=== PATIENT | male | born 1935 | race Hispanic/Latino ===

== ENCOUNTER 2018-11-07 10:05 | Day surgery (SDC) | payer MEDICARE ==
[~2018-11-07 10:05] MED LIST: NACL 0.9% 1000 ML 1,000 ML IV SCH
[2018-11-07] MEDS ORDERED: XYLOCAINE MPF 2% ONE (11:00)
[2018-11-07] MEDS ORDERED: DIPRIVAN 10 MG/ML IV ONE ×2 (11:35)
[2018-11-07] MEDS ORDERED: XYLOCAINE 2% UROJET ONE (11:55)
[2018-11-07] MEDS ORDERED: WATER FOR IRRIG STERILE IR ONE (11:55)
[2018-11-07] MEDS ORDERED: WATER FOR IRRIG STERILE ONE (11:55)
--- NOTE | 2018-11-07 12:13 | Procedure Note ---
Date of procedure: 11/07/18 Pre-op diagnosis: Colon Polyp Screening/ hematochezia Post-op diagnosis: other (Two, Small Descending colon Poyps/ H/O Partial Colon Resection (h/o Appendiceal Cancer)/ Extensive,Diverticular Disease/ Moderate Internal Hemorrhoid (s/p Banding x 3)/Minor,External Hemorrhoid) Procedure: Colonoscopy with Biosy and Flex Sig with Banding x 3 Anesthesia: MAC Surgeon: MAEGAN SCHUSTER Estimated blood loss: minimal Pathology: list Specimen disposition: to lab Condition: stable Disposition: same day (Avoid aspirin and NSAID and anticoagulants for 3 days. Encourage fiber intake. Use Sitz Bath and follow up in 1 to 2 weeks ([phone]).)
[2018-11-07 13:12] VITALS: BP 124/62
--- NOTE | 2018-11-07 14:41 | Anesthesia Day of Surgery ---
Anesthesia Day of Surgery - Day of Surgery Patient Examined: Yes Patient H&P Reviewed: Yes Patient is NPO: Yes
--- NOTE | 2018-11-07 14:43 | Anesthesia Consultation ---
Anesthesia Consult and Med Hx Date of service: 11/07/18 - Airway Anesthetic Teeth Evaluation: Poor ROM Head & Neck: Adequate Mental/Hyoid Distance: Adequate Mallampati Class: Class II Intubation Access Assessment: Probably Good - Pre-Operative Health Status ASA Pre-Surgery Classification: ASA3 Proposed Anesthetic Plan: MAC - Pulmonary Hx Sleep Apnea: Yes (CPAP) - Cardiovascular System Hx Hypertension: Yes (High cholesterol) Hx Cardia Arrhythmia: Yes (AFIB) - Other Systems Hx Cancer: Yes (APPENICEAL CARICINOMA)
--- NOTE | 2018-11-07 16:42 | Operative Report ---
PROCEDURE: Colonoscopy with biopsy. INDICATIONS: This is an 83-year-old white male who has a prior history of appendiceal cancer, for which he has had partial colon resection done. Colonoscopy was done as part of colon polyp screening to make sure there has not been any recurrence of any polyps. DESCRIPTION OF PROCEDURE: Procedure was done after getting informed consent with MAC anesthesia. Initial rectal exam was unremarkable. Instrument was passed through the rectum to the right colon, where the surgical signs were noted. There were extensive diverticula noted throughout the colon. The anastomotic site appeared normal. There was diverticular disease involving the transverse as well as the left colon. In the descending colon, there were two small polyps about 7-8 mm in diameter that were removed by cold biopsy. There was minimal bleeding from the biopsy sites and the rectum showed moderate internal hemorrhoid, from which he has hematochezia. PLAN: Plan is to do banding. ASSESSMENT: Colon polyp screening, partial colon resection secondary to history of appendiceal cancer. Two small descending colon polyps removed by cold biopsy. Moderately severe diverticular disease throughout the colon. The patient will be encouraged to take fiber supplements. Moderate internal hemorrhoid and minor internal hemorrhoid. The patient will be encouraged to take fiber supplements, avoid aspirin and aspirin-related products and anticoagulants for another couple of days and to do a flex sig with banding to help with his moderate internal hemorrhoid. Procedure was done with assistance of anesthesia and with the help and presence of RN, Elo Benson and Indy hahn. The patient will also be asked to follow up in the office in 1-2 weeks' time. JOB# [id number] CHARY/CAREY
--- NOTE | 2018-11-07 16:44 | Operative Report ---
PROCEDURE: Flexible sigmoidoscopy with banding x 3. INDICATIONS: This is an 83-year-old white male who has a prior history of appendiceal cancer and history of colon cancer. He is on anticoagulants secondary to his coronary artery disease and on occasion bleeds from his hemorrhoids and has required banding from time to time. Colonoscopy again showed presence of moderate internal hemorrhoid and minor external hemorrhoids as well as some colon polyps that were removed. He also had extensive diverticular disease and will be advised to take fiber supplements for that. DESCRIPTION OF PROCEDURE: The EGD scope with the banding apparatus was introduced and retroflexed. Three of the largest hemorrhoids were then suctioned into the suction channel and 3 bands were applied for each of the 3 hemorrhoids. Lidocaine gel was then injected into the rectal vault. ASSESSMENT: Hematochezia secondary to moderate internal hemorrhoids, status post banding x 3. PLAN: I have advised the patient to take Sitz bath, avoid aspirin and aspirin-related products and anticoagulants for the next 3 days. Analgesic to be used as needed and follow up in the office in 1-2 weeks' time. The patient's procedure was done in the GI lab with assistance of anesthesia and assistance and presence of RNElo and Indy hahn. JOB# [id number] CHARY/CAREY
== END 2018-11-07 10:06 | disposition home or self-care (01) ==
LOC: GIO 10:05
DX: K63.5 Polyp of colon (principal); K64.8 Other hemorrhoids; K57.30 Diverticulosis of large intestine without perforation or abscess without bleeding; E78.00 Pure hypercholesterolemia, unspecified; I48.91 Unspecified atrial fibrillation; I10 Essential (primary) hypertension; G47.30 Sleep apnea, unspecified; Z79.899 Other long term (current) drug therapy; Z98.890 Other specified postprocedural states; Z85.038 Personal history of other malignant neoplasm of large intestine
CPT/HCPCS: 45380; 46221; 88305; J2704; J7030

== ENCOUNTER 2020-11-13 06:57 | Day surgery (SDC) | payer MEDICARE ==
[2020-11-13] MEDS ORDERED: SODIUM CHLORIDE 0.9% 1000 ML 1,000 ML IV SCH (07:00)
[2020-11-13] MEDS ORDERED: WATER FOR IRRIG STERILE 250 ML BOTTLE IR ONE (07:18)
[2020-11-13] MEDS ORDERED: WATER FOR IRRIG STERILE 1,000 ML BOTTLE ONE (07:19)
--- NOTE | 2020-11-13 07:57 | Anesthesia Consultation ---
Anesthesia Consult and Med Hx Date of service: 11/13/20 - Airway Anesthetic Teeth Evaluation: Good ROM Head & Neck: Adequate Mental/Hyoid Distance: Adequate Mallampati Class: Class II Intubation Access Assessment: Probably Good - Pulmonary Exam CTA: Yes - Pre-Operative Health Status ASA Pre-Surgery Classification: ASA3 Proposed Anesthetic Plan: MAC - Pulmonary Hx Smoking: No Hx Respiratory Symptoms: No Hx Sleep Apnea: Yes (Regular use of CPAP machine) - Cardiovascular System Hx Hypertension: Yes Hx Coronary Artery Disease: Yes (EF 55%) Hx Heart Attack/AMI: No Hx Percutaneous Transluminal Coronary Angioplasty (PTCA): No Hx Cardia Arrhythmia: Yes (a-fib; last dose eliquis 11/11/19) Hx Pacemaker: No Hx Internal Defibrillator: No - Central Nervous System CVA: No Hx Psychiatric Problems: No - Gastrointestinal Hx Gastroesophageal Reflux Disease: No - Endocrine Hx Renal Disease: No Hx Liver Disease: No Hx Insulin Dependent Diabetes: No Hx Non-Insulin Dependent Diabetes: No Hx Thyroid Disease: No - Other Systems Hx Alcohol Use: No Hx Substance Use: No Hx Cancer: Yes (APPENDICEAL) Hx Obesity: Yes (BMI 41) - Additional Comments Anesthesia Medical History Comments: Patient denies previous anesthesia complications.
--- NOTE | 2020-11-13 08:09 | Anesthesia Day of Surgery ---
Anesthesia Day of Surgery - Day of Surgery Patient Examined: Yes Patient H&P Reviewed: Yes Patient is NPO: Yes Beta Blockers: No Cardiac Clearance: No Pulmonary Clearance: No Leonard's Test: N/A
[2020-11-13] MEDS ORDERED: LIDOCAINE MPF (2%) 20 MG/1 ML VIAL 5 ML ONE (08:47)
[2020-11-13] MEDS ORDERED: propofoL 200 MG/20 ML VIAL IV ONE ×2 (08:48→09:03)
--- NOTE | 2020-11-13 09:19 | Procedure Note ---
Date of procedure: 11/13/20 Pre-op diagnosis: H/O Colon Polyp/ H/O Appendiceal Cancer Post-op diagnosis: other (No Colon Polyps now/Extensive, Deep Diverticular Disease/ Mild to Moderate, Internal and External Hemorrhoids/ H/O Partial Colon Resection) Procedure: Colonoscopy Anesthesia: MAC Surgeon: MAEGAN SCHUSTER Estimated blood loss: none Pathology: none Condition: stable Disposition: same day (Encourage fiber intake; resume home medication and use OTC Hemorrhoidal Medication and Follow up in 1 to 2 weeks ([phone]).)
[2020-11-13 09:52] VITALS: BP 150/74
--- NOTE | 2020-11-13 09:52 | Operative Report ---
DATE OF SURGERY: 11/13/2020 PROCEDURE: Colonoscopy. INDICATIONS: This is an 85-year-old white male who has a prior history of an appendiceal cancer for which he had partial colon resection done. He also has a history of colon polyp and has had hemorrhoidal banding done in the past because of hematochezia. Colonoscopy was done to assess for recurrence of any polyps. DESCRIPTION OF PROCEDURE: Procedure was done after getting informed consent with MAC anesthesia. Initial rectal examination was unremarkable except for the presence of [id number] external hemorrhoid. The instrument was passed through the rectum onto the proximal colon. Surgical changes were noted in the proximal colon. The proximal colon was also viewed in the retroverted view. No additional pathology was noted. The right colon where there were surgical changes and transverse colon showed normal mucosa except for the presence of extensive and some deep diverticular disease that was noted throughout the entirety of the colon, more pronounced in the left colon, but was also noted in the transverse and also in the proximal colon. The left colon, which was the descending colon and the sigmoid only showed diverticular disease, some being quite deep and the rectum showed vmvq-[id number] internal hemorrhoid , but not significant enough for banding. ASSESSMENT: History of appendiceal cancer. No colon polyps noted. Partial colon resection. In the proximal colon, extensive diverticular disease and scattered throughout the colon, [id number] internal hemorrhoid and jvyq-uq-mphjmgor external hemorrhoid. PLAN: To have the patient resume home medication. Encouraged the patient to take fiber supplements and also take phab-kxc-lytyzry hemorrhoidal medication and follow up in the office in 1-2 weeks' time. Procedure was done in the GI lab with assistance of the GI lab team, which included the GI nurse, the biotech production specialist and with the assistance of anesthesia. TID: [id number] RECEIPT: [id number] KJ/CRISTINO
--- NOTE | 2020-11-13 11:29 | Post Anesthesia Evaluation ---
- Post Anesthesia Evaluation Patient Participated: Yes Airway Patent: Yes Stable Respiratory Function: Yes Nausea/Vomiting: No Temp > 96.8F: Yes Pain Manageable: Yes Adequeate Hydration: Yes Anesthesia Complications: No
== END 2020-11-13 10:05 | disposition home or self-care (01) ==
LOC: GIO 06:57
DX: Z12.11 Encounter for screening for malignant neoplasm of colon (principal); K57.30 Diverticulosis of large intestine without perforation or abscess without bleeding; K64.8 Other hemorrhoids; I42.9 Cardiomyopathy, unspecified; I25.10 Atherosclerotic heart disease of native coronary artery without angina pectoris; E78.00 Pure hypercholesterolemia, unspecified; I48.91 Unspecified atrial fibrillation; I10 Essential (primary) hypertension; G47.30 Sleep apnea, unspecified; E66.9 Obesity, unspecified; Z90.49 Acquired absence of other specified parts of digestive tract; Z79.899 Other long term (current) drug therapy; Z98.890 Other specified postprocedural states; Z68.25 Body mass index [BMI] 25.0-25.9, adult; Z86.010 Personal history of colon polyps; Z85.038 Personal history of other malignant neoplasm of large intestine
CPT/HCPCS: G0105; J2704; J7030

== ENCOUNTER 2021-11-12 07:10 | Day surgery (SDC) | payer MEDICARE ==
[~2021-11-12 07:10] MED LIST changes: -NACL 0.9% 1000 ML 1,000 ML IV SCH; +SODIUM CHLORIDE 0.9% 1000 ML 1,000 ML IV SCH
--- NOTE | 2021-11-12 08:04 | Anesthesia Day of Surgery ---
Anesthesia Day of Surgery - Day of Surgery Patient Examined: Yes
--- NOTE | 2021-11-12 08:04 | Anesthesia Consultation ---
Anesthesia Consult and Med Hx Date of service: 11/12/21 - Airway ROM Head & Neck: Adequate Mental/Hyoid Distance: Adequate Mallampati Class: Class II Intubation Access Assessment: Good - Pulmonary Exam CTA: Yes - Cardiac Exam Anesthetic Concerns: Irregular - Pre-Operative Health Status ASA Pre-Surgery Classification: ASA3 Proposed Anesthetic Plan: MAC - Pulmonary Hx Smoking: No Hx Respiratory Symptoms: No Hx Sleep Apnea: Yes (Regular use of CPAP machine) - Cardiovascular System Hx Hypertension: Yes Hx Coronary Artery Disease: Yes Hx Heart Attack/AMI: No Hx Percutaneous Transluminal Coronary Angioplasty (PTCA): No Hx Cardia Arrhythmia: Yes (a-fib; last dose eliquis 11/11/19) Hx Pacemaker: No Hx Internal Defibrillator: No Hx Heart Murmur: Yes Hx Peripheral Vascular Disease: Yes - Central Nervous System CVA: No Hx Psychiatric Problems: No - Gastrointestinal Hx Gastroesophageal Reflux Disease: No - Endocrine Hx Renal Disease: No Hx Liver Disease: No Hx Insulin Dependent Diabetes: No Hx Non-Insulin Dependent Diabetes: No Hx Thyroid Disease: No - Other Systems Hx Alcohol Use: No Hx Substance Use: No Hx Cancer: Yes (APPENDICEAL CANCER) Hx Obesity: Yes (BMI 41)
[2021-11-12] MEDS ORDERED: propofoL 200 MG/20 ML VIAL IV ONE (08:09)
[2021-11-12] MEDS ORDERED: WATER FOR IRRIG STERILE 250 ML BOTTLE IR ONE (08:12)
[2021-11-12] MEDS ORDERED: WATER FOR IRRIG STERILE 1,000 ML BOTTLE ONE (08:12)
[2021-11-12] MEDS ORDERED: LIDOCAINE 2% UROJECT 10 ML JELLY ONE (08:38)
--- NOTE | 2021-11-12 09:09 | Procedure Note ---
Date of procedure: 11/12/21 Pre-op diagnosis: H/O ColonPolyps/ H/O Appendiceal Cancer s/p Right Hemicolectomy and Hematoc Post-op diagnosis: other (No Colon Polyps now/ Extensive, Deep Diverticlar DS/P Right Hemicolectomy/Moderate,Internal Hemorrods (s/p Banding x 2)isease/) Procedure: Colonoscopy and Flexible Sigmoidoscopy with Banding x 2 Anesthesia: MAC Surgeon: MAEGAN SCHUSTER Estimated blood loss: minimal Pathology: list Specimen disposition: to lab Condition: stable Disposition: same day (Encourage fiber intake; treat with Tramadol, Lidocaine Gel. Avoid aspirin and NSAID for 5 days; F/U in 1 to 2 weeks ([phone]).)
--- NOTE | 2021-11-12 09:22 | Operative Report ---
DATE OF SURGERY: 11/12/2021 PROCEDURE: Flexible sigmoidoscopy with banding x2. INDICATIONS: This is an 86-year-old white male with a prior history of appendiceal cancer, status post right hemicolectomy, prior history of colon polyps; no colon polyps noted during this time. He is on anticoagulants because of his cardiac condition and has hemorrhoids, which possibly aggravated hematochezia. Colonoscopy showed moderate internal hemorrhoids. He underwent flexible sigmoidoscopy with banding x2. EGD scope with the banding apparatus was introduced and retroflexed. DESCRIPTION OF PROCEDURE: After getting informed consent, procedure was done with MAC anesthesia. Two of the largest hemorrhoids were then suctioned into the suction channel and band was applied. There were 2 bands applied to one of the hemorrhoids and one to the other. There was no bleeding or complications associated with it. ASSESSMENT AND PLAN: Hematochezia secondary to moderate internal hemorrhoids, status post banding x2. The patient will be given analgesics and also given lidocaine gel, asked to avoid aspirin and aspirin-related products for the next few days and follow up in the office in 1-2 weeks' time. The patient will also be asked to take fiber supplements because of the extensive diverticular disease that was present. TID: [id number] RECEIPT: [id number] CHARY/CYN
--- NOTE | 2021-11-12 09:27 | Operative Report ---
DATE OF SURGERY: 11/12/2021 INDICATIONS: This is an 86-year-old white male with a prior history of appendiceal cancer, status post right hemicolectomy, prior history of colon polyps, recent history of hematochezia. The patient is on anticoagulants because of his heart condition, which possibly aggravated his hematochezia. Colonoscopy was done to make sure there was not any recurrence of colon polyps and no significant pathology accounting for his hematochezia besides his hemorrhoids. DESCRIPTION OF PROCEDURE: Procedure was done after getting informed consent with MAC anesthesia. Initial rectal examination was unremarkable. Instrument was passed through the rectum onto the anastomotic site at the site of right hemicolectomy. The patient had extensive diverticular disease scattered throughout the colon, some of which were quite deep. There were no colon polyps noted. Visualization was fair to good. Mucosa was washed with copious amounts of water. The right colon, transverse colon, descending colon, and sigmoid had extensive scattered diverticular disease, but no colon polyps and the rectum showed moderate internal hemorrhoids, which was the possible cause of the patient's hematochezia. ASSESSMENT: History of colon polyps, history of hematochezia. History of appendiceal cancer, status post right hemicolectomy. No colon polyps noted; extensive diverticular disease, moderate internal hemorrhoids. PLAN: To encourage the patient to take fiber supplements and to do a flex-sig with banding. The patient will be asked to avoid aspirin and aspirin-related products for the next few days and follow up in the office in 1-2 weeks' time. Procedure was done in the GI lab with assistance of the GI lab team which included the GI nurse, the electroencephalograph technician and with assistance of Anesthesia. TID: [id number] RECEIPT: [id number] CHARY/GENESIS
[2021-11-12 10:32] VITALS: BP 157/72
== END 2021-11-12 09:30 | disposition home or self-care (01) ==
LOC: GIO 07:10
DX: K92.1 Melena (principal); K57.30 Diverticulosis of large intestine without perforation or abscess without bleeding; I25.10 Atherosclerotic heart disease of native coronary artery without angina pectoris; E78.00 Pure hypercholesterolemia, unspecified; I48.91 Unspecified atrial fibrillation; I10 Essential (primary) hypertension; G47.33 Obstructive sleep apnea (adult) (pediatric); K64.8 Other hemorrhoids; E66.9 Obesity, unspecified; Z68.41 Body mass index [BMI] 40.0-44.9, adult; Z98.890 Other specified postprocedural states; Z79.899 Other long term (current) drug therapy; Z90.49 Acquired absence of other specified parts of digestive tract; Z85.09 Personal history of malignant neoplasm of other digestive organs; Z86.010 Personal history of colon polyps
CPT/HCPCS: 45378; J2704; J7030